=== PATIENT | female | born 2000 | race Hispanic/Latino ===

== ENCOUNTER 2021-12-03 13:21 | Emergency (ER) | payer MEDICAID ==
[~2021-12-03] VITALS: Ht 152.4 cm; Wt 58.1 kg
[2021-12-03 19:33] LABS: APPEARANCE,URINE Cloudy (CLEAR); BILIRUBIN,URINE Negative (NEGATIVE); COLOR,URINE Yellow (YELLOW); GLUCOSE, URINE (UA) Negative (NEGATIVE); KETONES,URINE >=160 mg/dL (NEGATIVE); LEUKOCYTE ESTERASE ,URINE Moderate (NEGATIVE); NITRATE,URINE Negative (NEGATIVE); OCCULT BLOOD,URINE Negative (NEGATIVE); PH,URINE 6.5 (5.0-8.0); PROTEIN,URINE Negative (NEGATIVE)
[2021-12-03 19:41] LABS: BACTERIA,URINE Few /HPF (None Seen); RBC,URINE 0-1 /HPF (0-1)
[2021-12-03 19:42] LABS: MUCUS,URINE Few LPF (None Seen); SQUAMOUS EPITHELIAL CELL,UR Few /HPF (0-2)
[2021-12-03 20:05] VITALS: BP 116/60
[2021-12-03] MEDS ORDERED: SULF1TAB42 PO (20:12)
[2021-12-03] MEDS ORDERED: SULFAMETHOX-TMP DS 800/160 TAB PO SCH (21:00)
== END 2021-12-03 20:37 | disposition home or self-care (01) ==
LOC: EDH 13:21
DX: O23.41 Unspecified infection of urinary tract in pregnancy, first trimester (principal); Z3A.01 Less than 8 weeks gestation of pregnancy; Z79.899 Other long term (current) drug therapy
CPT/HCPCS: 81001; 87088; 87486; 87797

== ENCOUNTER 2023-07-01 09:21 | Emergency (ER) | payer MEDICAID ==
[~2023-07-01] VITALS: Ht 162.6 cm; Wt 61.2 kg
[~2023-07-01 09:21] MED LIST: PREN-64 PO
[2023-07-01 09:25] VITALS: BP 109/61; PULSE 104; RESP 16; O2SAT 97
[2023-07-01 10:25] LABS: RAPID GROUP A STREP negative (NEGATIVE)
[2023-07-01 10:30] LABS: SARS-CoV-2, RNA, NAAT NEGATIVE SARS CoV-2 (NEGATIVE)
[2023-07-01 10:34] LABS: INFLUENZA TYPE A Negative For Type A (NEGATIVE); INFLUENZA TYPE B Negative For Type B (NEGATIVE)
[2023-07-01] MEDS ORDERED: AMOX500C2 PO (11:23)
== END 2023-07-01 11:39 | disposition home or self-care (01) ==
LOC: EDH 09:21
DX: J02.0 Streptococcal pharyngitis (principal); Z20.822 Contact with and (suspected) exposure to COVID-19
CPT/HCPCS: 99283; 87635; 87880; 87804 ×2; C9803

== ENCOUNTER 2025-01-06 13:00 | Emergency (ER) | payer SELFPAY ==
[~2025-01-06] VITALS: Ht 154.9 cm; Wt 61.2 kg
--- NOTE | 2025-01-06 13:07 | ERN ---
ED Note History of Present Illness Stated Complaint: ABDOMINAL PAIN,BODY ACHES,MULTIPLE COMPLAINTS Chief Complaint: Fever Time Seen by MD: 13:01 Dictation: PATIENT IS A 24-YEAR-OLD FEMALE COMING IN WITH SEVERAL OTHER FAMILY MEMBERS THAT WERE EXPOSED TO INFLUENZA ON WEDNESDAY. SHE STATES SHE HAS BEEN HAVING FLU-LIKE SYMPTOMS AFTER EXPOSURE TO HER MOTHER WHO WAS POSITIVE FOR INFLUENZA A. HER SYMPTOMS INCLUDE CLEAR RUNNY NOSE, MILD SORE THROAT, DRY COUGH AND BODY ACHES. SHE DOES NOT HAVE A PRIMARY CARE DOCTOR HAS NOT TAKEN ANYTHING PRIOR TO ARRIVAL FOR PAIN Allergies: Coded Allergies: No Known Drug Allergies (Unverified Allergy, Unknown, 12/03/21) Home Meds Reported Medications Vit #76/Iron,Carb/FA (Prenatabs Rx Tablet) 1 Each Tablet, 1 EACH PO DAILY, TAB 07/01/22 Past Medical History Past Medical History: No Pertinent History Surgical History: None : 3 Para: 2 Aborts: 0 Review of System Dictation CONSTITUTIONAL: NEGATIVE EXCEPT FOR HPI FEVER CHILLS HEAD/FACE: NEGATIVE EXCEPT FOR HPI EENT: NEGATIVE EXCEPT FOR HPI CLEAR RHINITIS WITH MILD SORE RESPIRATORY: NEGATIVE EXCEPT FOR HPI THROAT DRY COUGH GASTROINTESTINAL/ABDOMINAL: NEGATIVE EXCEPT FOR HPI GENITOURINARY: NEGATIVE EXCEPT FOR HPI MUSCULOSKELETAL: NEGATIVE EXCEPT FOR HPI INTEGUMENTARY: NEGATIVE EXCEPT FOR HPI NEUROLOGICAL/PSYCH: NEGATIVE EXCEPT FOR HPI HEMATOLOGIC/LYMPHATIC: NEGATIVE EXCEPT FOR HPI ALL SYSTEMS NEGATIVE, EXCEPT NOTED ABOVE. 13 POINT REVIEW OF SYSTEMS ASSESSED AND ALL NEGATIVE EXCEPT FOR ABOVE. Initial Vital Sign VS Vital Signs Date Time Temp Pulse Resp B/P (MAP) Pulse Ox O2 Delivery O2 Flow Rate FiO2 01/06/25 13:06 99.1 94 16 109/70 100 Room Air 0 01/06/25 13:51 21 Physical Exam Dictation VITAL SIGNS REVIEWED GENERAL APPEARANCE: ALERT, ORIENTED X 3, NO ACUTE DISTRESS, WELL DEVELOPED, NOURISHED. HEAD AND FACE: NON-TRAUMATIC. EYES: PERRL, PINK CONJUNCTIVAS, EYELID NO TRAUMA, ANTERIOR CHAMBER WITH ARCUS SENILIS. EARS: PINNAS INTACT AND NO SIGNS OF TRAUMA OR ERYTHEMA EAR CANALS CLEAR AND NO DISCHARGE TM NO ERYTHEMA NOSE: CLEAR DISCHARGE, NO BLEEDING. OROPHARYNX: MOUTH NORMAL, TONGUE PINK, PHARYNX CLEAR, MILD PHARYNGEAL ERYTHEMA, TONSILS NO EXUDATES, NO ABSCESSES NOTED, MUCOUS MEMBRANE MOIST NECK: SUPPLE, NON-TENDER, NO THYROMEGALY, NO MASSES, NO JVD, NO BRUITS BREAST:DEFERRED CHEST:NO TENDERNESS, NO CREPITUS, NO PARADOXICAL MOVEMENT, NO RETRACTIONS LUNGS:CLEAR, WELL-VENTILATED, SYMMETRIC, NO RALES, NO WHEEZING, NO RHONCHI, NO STRIDOR, GOOD BREATH SOUNDS BILATERALLY HEART: REGULAR RATE, REGULAR RHYTHM, NO MURMUR, NO GALLOPS VASCULAR: NO PERIPHERAL EDEMA, ABDOMEN: SOFT, POSITIVE BOWEL SOUNDS, NONDISTENDED, NO GUARDING, NONTENDER, NO REBOUND, NO MASSES NO HEPATOMEGALY, NO SPLENOMEGALY, NO MARTÍNEZ'S SIGN, NO HERNIAS. RECTAL: DEFERRED GENITAL: DEFERRED NEUROLOGICAL: NORMAL SPEECH, MOTOR FUNCTION INTACT, SENSORY FUNCTION INTACT MUSCULOSKELETAL: NECK NONTENDER, FULL RANGE OF MOTION, BACK NONTENDER, FULL RANGE OF MOTION, EXTREMITIES: NONTENDER, FULL RANGE OF MOTION SKIN: COLOR PINK, DRY, NO TURGOR, NO RASH, NO LACERATIONS, NO ABRASIONS, NO CONTUSIONS. LYMPHATIC: DEFERRED Results (Laboratory/Radiology) Laboratory/Radiology Laboratory Tests Test 01/06/25 13:25 Influenza Type A Antigen Negative For Type A Influenza Type B Antigen Negative For Type B ED Course ED Course Orders Procedure Category Date Status Time Influenza Type A & B, LAB 01/06/25 Complete Rapid 13:06 Acetaminophen 500mg PHA 01/06/25 Complete Tab (Tylenol 500mg T 13:30 Current Medications Medications (Trade) Dose Ordered Sig/Henrietta Route PRN Reason Start Time Stop Time Status Last Admin Dose Admin Acetaminophen (TYLenol 500MG TAB) 1,000 mg ONCE ONCE PO 01/06/25 13:30 01/06/25 13:31 DC 01/06/25 14:34 Vital Signs Date Time Temp Pulse Resp B/P (MAP) Pulse Ox O2 Delivery O2 Flow Rate FiO2 01/06/25 14:34 99.1 01/06/25 13:51 99.1 94 16 109/70 100 Room Air* 0 21 01/06/25 13:06 99.1 94 16 109/70 100 Room Air 0 FOURTEEN 10, INFLUENZA SWAB NEGATIVE PATIENT WILL BE DISCHARGED HOME WITH KINGA LUND, TOLD TO SEE HER PRIMARY CARE DOCTOR IN THE NEXT 1-2 DAYS. Medical Decision Making MDM MEDICAL DISCHARGE MAKING BASED ON SWABS FOR INFLUENZA AFTER EXPOSURE SWAB IS NEGATIVE DISCHARGED HOME WITH KINGA FOR SUPPORTIVE CARE AND TOLD TO SEE HER DOCTOR. DX & DISP Disposition: Discharge Departure Impression: Primary Impression: Viral URI with cough Condition: Stable Additional Instructions: FOLLOW-UP WITH PRIMARY CARE PROVIDER IN 1 TO 2 DAYS. TAKE MEDICATIONS DIRECTED HERE IN THE EMERGENCY ROOM. OKAY TO CONTINUE HOME MEDICATIONS UNLESS OTHERWISE DISCUSSED DURING YOUR VISIT IN THE EMERGENCY ROOM TODAY. RETURN TO YOUR NEAREST EMERGENCY ROOM IF SYMPTOMS WORSEN OR IF THERE IS NO IMPROVEMENT. CALL 911 IF YOU NEED IMMEDIATE ASSISTANCE. TAKE TYLENOL OR MOTRIN [id number] NEEDED AND IF NO CONTRAINDICATIONS ARE PRESENT. INCREASE ORAL HYDRATION. A WOUND CULTURE OR URINE CULTURE WAS ORDERED HERE IN THE EMERGENCY ROOM DEPARTMENT PLEASE FOLLOW-UP WITH PRIMARY CARE PROVIDER AND ADVISE THEM TO GET REPEAT PORTS FROM OUR FACILITY. IF YOU HAD ANY LIZETH WRAP/SPLINTS THAT WERE APPLIED HERE, PLEASE DO NOT REMOVE THEM UNTIL YOU SEE YOUR PRIMARY CARE OR SPECIALTY. TAKE ROBITUSSIN/[id number] NEEDED FOR COUGH. FOLLOW UP WITH YOUR PRIMARY CARE DOCTOR IN 1-2 DAYS. Referrals: YAO DELEON JR, MD (PCP) Time of Disposition: 14:10 I have reviewed the case, and I agree with, Diagnosis and Plan I performed a substantive portion of the visit. I have reviewed and personally made and approve the management plan that is documented in the notes by myself with BIA/resident. I acknowledged full responsibility for the patient's management plan. LYLE RANGEL NP Jan 06, 2025 13:07 DELANEY RODRIGUEZ DO Jan 08, 2025 07:31
[2025-01-06 13:51] VITALS: BP 109/70; PULSE 94; RESP 16; TEMP 99.1; O2SAT 100
[2025-01-06 13:57] LABS: INFLUENZA TYPE A Negative For Type A (NEGATIVE); INFLUENZA TYPE B Negative For Type B (NEGATIVE)
[2025-01-06 14:34] VITALS: TEMP 99.1
[2025-01-06] MEDS: acetaMINOPHEN 500 MG TABLET PO ONE (14:34)
== END 2025-01-06 14:39 | disposition home or self-care (01) ==
LOC: EDH 13:00
DX: J06.9 Acute upper respiratory infection, unspecified (principal); B97.89 Other viral agents as the cause of diseases classified elsewhere; Z79.899 Other long term (current) drug therapy
CPT/HCPCS: 87804; 99283

== ENCOUNTER 2025-03-09 08:16 | Emergency (ER) | payer SELFPAY ==
[~2025-03-09] VITALS: Ht 154.9 cm; Wt 67.1 kg
--- NOTE | 2025-03-09 08:36 | ERN ---
General Chief Complaint: Pelvic Pain Stated Complaint: , PELVIC PAIN Time Seen by MD: 08:20 Source: patient History of Present Illness Initial Comments Patient is a 24-year-old female coming in to be evaluated for vaginal discomfort. Patient states that she recently found out she was . She states that she has been having some vaginal discomfort noticed the vaginal discharge. No other current complaint. Allergies: Coded Allergies: No Known Drug Allergies (Unverified Allergy, Unknown, 12/03/21) Home Meds Reported Medications Vit #76/Iron,Carb/FA (Prenatabs Rx Tablet) 1 Each Tablet, 1 EACH PO DAILY, TAB 07/01/22 Past Medical History Past Medical History: No Pertinent History Past Surgical History: None Female( History) : 3 Para: 2 Aborts: 0 ROS Dictation CONSTITUTIONAL: No chills, no fever, no weakness, no diaphoresis, no malaise. HEAD/FACE: No signs of trauma. EENT: No eye pain, no blurred vision, no tearing, no double vision, no ear pain, no ear discharge, no nose pain, no nasal congestion, no throat pain, no throat swelling, no mouth pain. RESPIRATORY: No cough, no orthopnea, no SOB, no stridor, no wheezing. CARDIOVASCULAR: No chest pain, no edema, no palpitations, no syncope. GASTROINTESTINAL/ABDOMINAL: No abdominal pain, no constipation, no diarrhea, no nausea, no vomiting. GENITOURINARY: abnormal discharge, no dysuria, no frequent urination, no hematuria. pain in the genitals. MUSCULOSKELETAL: No back pain, no gout, no joint pain, no joint swelling, no muscle pain, no muscle stiffness, no neck pain. INTEGUMENTARY: No change in color, no change in hair/nails, no dryness, no lesion, no lumps, no rash. NEUROLOGICAL/PSYCH: No anxiety, not depressed, no emotional problem, no headache, no numbness, no pre-existing deficit, no history of seizures, no tremors, no weakness. HEMATOLOGIC/LYMPHATIC: Not anemic, no history of blood clots, no apparent bleeding, no bruising, glands not swollen. All Systems Negative, Except as Noted. Physical Exam Physical Exam Dictation VITAL SIGNS: Reviewed. GENERAL APPEARANCE: Alert, oriented x3, no acute distress, obese. HEAD AND FACE: Non-traumatic. EYES: PERRL, pink conjunctivas, eyelid no trauma, anterior chamber clear. EARS: Pinnas intact and no signs of trauma or erythema. Ear canals clear and no discharge. TMs no erythema. NOSE: No discharge, no bleeding. OROPHARYNX: Mouth normal, teeth no caries, tongue pink. Pharynx clear, no erythema. Tonsils no exudates, no abscesses noted. Mucous membrane moist. NECK: Supple, non-tender, no thyromegaly, no masses, no JVD, no bruits. BREAST: Deferred. CHEST: No tenderness, no crepitus, no paradoxical movement, no retractions. LUNGS: Clear, well-ventilated, symmetric, no rales, no wheezing, no rhonchi, no stridor, good breath sounds bilaterally. HEART: Regular rate, regular rhythm, no murmur, no gallops. VASCULAR: No peripheral edema. ABDOMEN: Soft, positive bowel sounds, nondistended, no guarding, nontender, no rebound, no masses no hepatomegaly, no splenomegaly, no Lugo's sign, no hernias. RECTAL: Deferred. GENITAL: Chaperoned by nurse, bimanual exam mild adnexal tenderness on pa lpation no discharge noticed NEUROLOGICAL: Normal speech, gross motor function intact, gross sensory function intact. MUSCULOSKELETAL: Neck nontender, full range of motion, back nontender, full range of motion. EXTREMITIES: Nontender, full range of motion. SKIN: Color pink, dry, no turgor, no rash, no lacerations, no abrasions, no contusions. LYMPHATICS: Deferred. Results Laboratory and Microbiology Lab and Micro Result Laboratory Tests Test 03/09/25 08:30 Urine Color LIGHT-YELLOW (YELLOW) Urine Appearance CLEAR (CLEAR) Urine pH 5.5 (5.0-8.0) Urine Specific [place] 1.017 (1.001-1.031) Urine Protein NEGATIVE mg/dL (NEGATIVE) Urine Glucose (UA) NEGATIVE mg/dL (NEGATIVE) Urine Ketones NEGATIVE mg/dL (NEGATIVE) Urine Occult Blood +- (TRACE) (NEGATIVE) H Urine Nitrate NEGATIVE (NEGATIVE) Urine Bilirubin NEGATIVE mg/dL (NEGATIVE) Urine Urobilinogen 0.2 mg/dL (0.2-1.0) Urine Leukocyte Esterase NEGATIVE [facility]/uL Urine RBC 0-1 /HPF (0-1) Urine WBC 0-1 /HPF (0-1) Urine Squamous Epithelial Cells RARE /HPF (0-2) Urine Bacteria None /HPF (None Seen) Labs Reviewed?: Yes MDM MDM: Differential diagnosis: Dysuria, vaginal discharge, vaginitis, Rationale: Tests considered and ordered secondary to shared decision making include: Previous outside records reviewed: Old ER visits. Risk of complication and/or morbidity or mortality of patient management: None Patient is a 23-year-old female coming in to be evaluated for vaginal discharge and vaginal discomfort. Patient states that she had one episodes of vaginal discharge and has some mild discomfort and vaginal area. She just found out she was . On physical exam chaperoned by nurse there was no vaginal discharge mild tenderness in the vaginal area. Urine culture was taken and sent for evaluation of gonorrhea and chlamydia. Patient will be discharged in stable condition with a diagnosis vaginitis I did advise her if just come back positive patient will be notified. ED Course Orders Procedure Category Date Status Time Urinalysis LAB 03/09/25 Complete W/Microscopic 08:32 Chlamydia & Gc Pcr GILBERTO 03/09/25 In Process 08:32 Vital Signs Date Time Temp Pulse Resp B/P (MAP) Pulse Ox O2 Delivery O2 Flow Rate FiO2 03/09/25 08:46 98.8 73 18 123/74 98 Room Air* 0 21 03/09/25 08:17 98.4 87 16 125/73 100 Room Air DX & DISP Disposition: Discharge Departure Impression: Primary Impression: Vaginitis Condition: Stable Additional Instructions: FOLLOW-UP WITH PRIMARY CARE PROVIDER IN 1 TO 2 DAYS. TAKE MEDICATIONS DI RECTED HERE IN THE EMERGENCY ROOM. OKAY TO CONTINUE HOME MEDICATIONS UNLESS OTHERWISE DISCUSSED DURING YOUR VISIT IN THE EMERGENCY ROOM TODAY. RETURN TO YOUR NEAREST EMERGENCY ROOM IF SYMPTOMS WORSEN OR IF THERE IS NO IMPROVEMENT. CALL 911 IF YOU NEED IMMEDIATE ASSISTANCE. TAKE TYLENOL [id number] NEEDED AND IF NO CONTRAINDICATIONS ARE PRESENT. INCREASE ORAL HYDRATION. A WOUND CULTURE OR URINE CULTURE WAS ORDERED HERE IN THE EMERGENCY ROOM DEPARTMENT PLEASE FOLLOW-UP WITH PRIMARY CARE PROVIDER AND ADVISE THEM TO GET REPEAT PORTS FROM OUR FACILITY. IF YOU HAD ANY LIZETH WRAP/SPLINTS THAT WERE APPLIED HERE, PLEASE DO NOT REMOVE THEM UNTIL YOU SEE YOUR PRIMARY CARE OR SPECIALTY. Referrals: Referrals: SELF,REFERRAL (PCP) ED RED MD Time of Disposition: 08:59 BIANCA SAVAGE MD March 09, 2025 08:36
[2025-03-09 08:45] LABS: APPEARANCE,URINE CLEAR (CLEAR); BILIRUBIN,URINE NEGATIVE (NEGATIVE); COLOR,URINE LIGHT-YELLOW (YELLOW); GLUCOSE, URINE (UA) NEGATIVE (NEGATIVE); KETONES,URINE NEGATIVE (NEGATIVE); LEUKOCYTE ESTERASE ,URINE NEGATIVE Leu/uL (NEGATIVE); NITRATE,URINE NEGATIVE (NEGATIVE); PH,URINE 5.5 (5.0-8.0); PROTEIN,URINE NEGATIVE (NEGATIVE); UROBILINOGEN,URINE 0.2 mg/dL (0.2-1.0)
[2025-03-09 08:46] LABS: MUCUS,URINE RARE LPF (None Seen); RBC,URINE 0-1 /HPF (0-1); SQUAMOUS EPITHELIAL CELL,UR RARE /HPF (0-2); WBC,URINE 0-1 /HPF (0-1)
[2025-03-09 09:30] VITALS: BP 118/68; PULSE 77; RESP 17; TEMP 98.1; O2SAT 99
--- NOTE | 2025-03-09 09:33 | NUR ---
PT [id number] STABLE NO DISTRESS VITALS WNL NO C/O PAIN NOW ONLY MILD DISCOMFORT. PT GIVEN INSTRUCTIONS FOR HOME, WILL SEE PCP IN ON DISCHARGE. PT WILL DRIVE HERSELF HOME.
== END 2025-03-09 09:37 | disposition home or self-care (01) ==
LOC: EDH 08:16
DX: O23.599 Infection of other part of genital tract in pregnancy, unspecified trimester (principal); Z3A.00 Weeks of gestation of pregnancy not specified
CPT/HCPCS: 81001; 87491; 87591; 99283; 99284